=== PATIENT | male | born 1985 | race Caucasian/White ===

== ENCOUNTER 2018-12-06 21:33 | Emergency (ER) | payer SELFPAY ==
[2018-12-07] MEDS: DIPHTH/TET/ACEL PERTUSS (ADULT) 0.5 ML VIAL IM* (00:10)
[2018-12-07] MEDS: HYDROCODONE/APAP (10/325) TAB PO (00:14)
[2018-12-07] MEDS: morphine 4 MG/ML VIAL IV (02:40)
[2018-12-07] MEDS: ONDANSETRON 4 MG INJ IV (02:40)
[2018-12-07] MEDS: IBUPROFEN 800 MG TAB PO (04:24)
== END 2018-12-07 04:40 | disposition home or self-care (01) ==
LOC: FTE 12-07 04:40
DX: S02.2XXA Fracture of nasal bones, initial encounter for closed fracture (principal); S06.0X0A Concussion without loss of consciousness, initial encounter; M62.838 Other muscle spasm; S82.201A Unspecified fracture of shaft of right tibia, initial encounter for closed fracture; T14.8XXA Other injury of unspecified body region, initial encounter; R06.02 Shortness of breath; V23.4XXA Motorcycle driver injured in collision with car, pick-up truck or van in traffic accident, initial encounter; Z23 Encounter for immunization
CPT/HCPCS: 29505; 70450; 70486; 71046; 72125; 72128; 72131; 73590; 73610-RT; 73630; 90471; 90715; 96374; 96375; 99285-25